=== PATIENT | male | born 1970 | race Caucasian/White ===

== ENCOUNTER → 2019-10-26 | Outpatient (CLI) | payer BC ==
[2019-10-26 20:21] LABS: Creatine Kinase 82 U/L (35-257)
[2019-10-26 20:30] LABS: Protein, Total 6.8 g/dL (6.2-8.2)
[2019-10-28 14:39] LABS: Albumin 4.21 g/dL (3.80-4.90); Gamma Globulin 0.97 g/dL (0.70-1.50)
[2019-10-28 17:51] LABS: Arsenic Whole Blood 8 mcg/L (< 23); Mercury Whole Blood 2 mcg/L (< 11)
== END | disposition home or self-care (01) ==
LOC: LABWHC1 10:40
PROVIDERS: ATTEND Psychiatry & Neurology Neurology
DX: R73.9 Hyperglycemia, unspecified (principal); R42 Dizziness and giddiness; R26.89 Other abnormalities of gait and mobility; G62.9 Polyneuropathy, unspecified
CPT/HCPCS: 36415; 82175; 82550; 82570; 82607; 82747; 83036; 83655; 83825; 84165; 84443; 85652; 86038; 86618

== ENCOUNTER → 2020-01-23 | Outpatient (CLI) | payer BC ==
--- NOTE | 2020-01-24 18:08 | MR ---
EXAMINATION TYPE: MR brain/cspine wo DATE OF EXAM: 01/23/2020 COMPARISON: None HISTORY: MS, dizziness, neuropathy CONTRAST: Performed utilizing 0 mL intravenous Gadavist gadolinium contrast. TECHNIQUE: Multiplanar, multisequence imaging of the brain is performed on a 3.0 Estefani magnet. Demye linating disease protocol with additional Sagittal Flair sequence is performed. Study is performed wi thin 24 hours of arrival to the hospital. FINDINGS: T2 White Matter Lesions Present : Yes Approximate Number of Lesions: There may be a subtle white matter change within the left frontal lobe subcortical white matter. Series 501 image 16 Locations Identified : Subcortical white matter bilateral occipital lobes and subcortical right parie leslee lobe Size of Largest Lesion(s): 1. 0.3 x 0.4 x 0.3 cm. Location: Right subcortical occipital lobe Sequence 501 Image 19 (axial) and Sequence 601 Image 24 (sagittal). Enhancing Lesion(s) Present: No Change from Prior: No priors Diffusion-weighted imaging is performed. No abnormal hyperintensity is present to suggest an acute i ntracranial infarct or acute ischemic change. Ventricles and sulci are appropriate for the patient age. Optic chiasm appears normal. There are no abnormal extra-axial fluid collections. The ventricular system and cisternal spaces are normal in size and appearance. The brain volume is age appropriate. The craniocervical junction nilton ears within normal limits. The dural venous sinuses appear patent. No abnormal enhancement is present on post contrast images. . The visualized sinuses are clear. Visu alized orbits are unremarkable. IMPRESSION: 1. Few punctate hyperintensities which are nonspecific. Differential diagnosis does include multiple sclerosis. Microvascular ischemic change and changes associated with migraine headaches should also be considered. Vasculitis would be within the differential. EXAMINATION TYPE: MR brain/cspine wo DATE OF EXAM: 01/23/2020 COMPARISON: None HISTORY: MS, dizziness, neuropathy CONTRAST: Performed utilizing 0 mL intravenous Gadavist gadolinium contrast. TECHNIQUE: Multiplanar multiecho imaging on a 3.0 Estefani magnet is performed through the cervical spin e. FINDINGS: The craniovertebral junction is normal. Vertebral body alignment is normal. C7-T1: No focal disc herniation or significant disc bulge is evident. No spinal canal stenosis or n eural foraminal stenosis is present. C6-7: No focal disc herniation or significant disc bulge is evident. No spinal canal stenosis present . Uncovertebral joint hypertrophy is present on the left with severe foraminal stenosis. C5-6: Mild disc bulge is present with anterior thecal sac contact. No AP spinal canal stenosis presen t. Uncovertebral joint hypertrophy is present on the left with moderate to severe left foraminal sten osis. C4-5: Mild disc bulge is present with minimal anterior thecal sac contact. No cord contact is evident . No spinal canal stenosis present. Uncovertebral joint hypertrophy is present with mild to moderate bilateral foraminal stenosis. C3-4: There is a subtle area of increased signal within the minimal left paracentral bulge suggestive for an annular tear. This has very mild anterior thecal sac compression. No cord contact is evident. Neural foramen are widely patent. C2-3: No focal disc herniation or significant disc bulge is evident. No spinal canal stenosis or singh ral foraminal stenosis is present. IMPRESSIONS: 1. No suspicious changes to suggest multiple sclerosis within the spinal cord. 2. Mild degenerative disc changes with minimal to mild anterior thecal sac compression discussed abov e. 3. Foraminal stenosis due to uncovertebral joint hypertrophy appears greatest at C6-7 on the left.
== END | disposition home or self-care (01) ==
LOC: RADMRIMAIN 09:17
PROVIDERS: ATTEND Psychiatry & Neurology Neurology
DX: I67.82 Cerebral ischemia (principal); R90.89 Other abnormal findings on diagnostic imaging of central nervous system; M48.02 Spinal stenosis, cervical region; M47.812 Spondylosis without myelopathy or radiculopathy, cervical region
CPT/HCPCS: 70551; 72141

== ENCOUNTER → 2020-01-25 | Outpatient (CLI) | payer BC ==
--- NOTE | 2020-01-25 07:41 | MR ---
EXAMINATION TYPE: MR thoracic spine wo con DATE OF EXAM: 01/25/2020 COMPARISON: None HISTORY: MS, neuropathy, abnormal reflex Standard multiplanar, multisequence MRI departmental protocol Multiplanar, multisequence images of the thoracic spine were acquired on a 3.0 Estefani magnet. FINDINGS: Spinal cord maintains normal signal throughout its visualized course. There is diminished h ydration of the T9 and T10 disc level. Disc heights are preserved. Vertebral body heights are preserv ed. No focal disc herniations or significant disc bulges are evident. Mild left paracentral disc bulg e is present at T12-L1 with mild intrathecal sac compression. No cord contact is evident. IMPRESSION: 1. Mild left paracentral disc bulge T12-L1 with mild anterior thecal sac compression. 2. No suspicious thoracic spinal cord signal change suggesting multiple sclerosis.
== END | disposition home or self-care (01) ==
LOC: RADMRIMAIN 06:06
PROVIDERS: ATTEND Psychiatry & Neurology Neurology
DX: M51.25 Other intervertebral disc displacement, thoracolumbar region (principal)
CPT/HCPCS: 72146